=== PATIENT | male | born 1995 | race Caucasian/White ===

== ENCOUNTER 2017-11-13 15:53 | Emergency (ER) | payer SELFPAY ==
[2017-11-13 16:20] VITALS: BP 137/66
[2017-11-13] MEDS ORDERED: ONDANSETRON 4 MG TAB.RAPDIS PO ONE (16:53)
--- NOTE | 2017-11-13 16:57 | ER Document Report ---
ED GI/ - General Chief Complaint: Nausea Stated Complaint: VOMITING Time Seen by Provider: 11/13/17 16:48 Mode of Arrival: Ambulatory Information source: Patient Notes: 42-year-old male presents to ED for complaint of one episode of vomiting yesterday. States he has had some nausea today. He states he was at work when he became very nauseated and vomited yesterday states became very overheated that he had to go home. He states he is coming in today because he needs a work note in order to go back to work. He states he would also like some nausea medicine if he could please. TRAVEL OUTSIDE OF THE [place] IN LAST 30 DAYS: No - HPI Patient complains to provider of: Vomiting Onset: Yesterday Timing/Duration: Gone Quality of pain: No pain Severity at maximum: Mild Severity in ED: None Pain Level: Denies Associated symptoms: Nausea Exacerbated by: Denies Relieved by: Denies Similar symptoms previously: Yes Recently seen / treated by doctor: No - Related Data Allergies/Adverse Reactions: haloperidol [From Haldol] Allergy (Verified 11/13/17 15:56) haloperidol lactate [From Haldol] Allergy (Verified 11/13/17 15:56) Past Medical History - General Information source: Patient - Social History Smoking Status: Former Smoker Cigarette use (# per day): No Chew tobacco use (# tins/day): No Smoking Education Provided: No Frequency of alcohol use: None Drug Abuse: None Occupation: [employer] as a cook Lives with: Family Family History: Reviewed & Not Pertinent Patient has suicidal ideation: No Patient has homicidal ideation: No - Past Medical History Cardiac Medical History: Reports: None Pulmonary Medical History: Reports: None EENT Medical History: Reports: None Neurological Medical History: Reports: None Endocrine Medical History: Reports: None Renal/ Medical History: Reports: None Malignancy Medical History: Reports None GI Medical History: Reports: None Musculoskeltal Medical History: Reports None Skin Medical History: Reports None Psychiatric Medical History: Reports: Hx Anxiety, Hx Bipolar Disorder - ptsd, Hx Depression Traumatic Medical History: Reports: None Infectious Medical History: Reports: None Surgical Hx: Negative Past Surgical History: Reports: None - Immunizations Immunizations up to date: Yes Hx Diphtheria, Pertussis, Tetanus Vaccination: Yes Review of Systems - Review of Systems Constitutional: No symptoms reported EENT: No symptoms reported Cardiovascular: No symptoms reported Respiratory: No symptoms reported Gastrointestinal: Nausea, Vomiting Genitourinary: No symptoms reported Male Genitourinary: No symptoms reported Musculoskeletal: No symptoms reported Skin: No symptoms reported Hematologic/Lymphatic: No symptoms reported Neurological/Psychological: No symptoms reported -: Yes All other systems reviewed and negative Physical Exam - Vital signs Vitals: Temp Pulse Resp BP Pulse Ox 98.8 F 94 16 137/66 H 95 11/13/17 16:18 11/13/17 16:18 11/13/17 16:18 11/13/17 16:18 11/13/17 16:18 Interpretation: Normal - General General appearance: Appears well, Alert - HEENT Head: Normocephalic, Atraumatic Eyes: Normal Pupils: PERRL - Respiratory Respiratory status: No respiratory distress Chest status: Nontender Breath sounds: Normal Chest palpation: Normal - Cardiovascular Rhythm: Regular Heart sounds: Normal auscultation Murmur: No - Abdominal Inspection: Normal Distension: No distension Bowel sounds: Normal Tenderness: Nontender. No: Tender Organomegaly: No organomegaly. No: Mass - Back Back: Normal, Nontender - Extremities General upper extremity: Normal inspection, Nontender, Normal color, Normal ROM , Normal temperature General lower extremity: Normal inspection, Nontender, Normal color, Normal ROM , Normal temperature, Normal weight bearing. No: Sydnee's sign - Neurological Neuro grossly intact: Yes Cognition: Normal Orientation: AAOx4 [place] Coma Scale Eye Opening: Spontaneous Yuliana Coma Scale Verbal: Oriented Yuliana Coma Scale Motor: Obeys Commands [place] Coma Scale Total: 15 Speech: Normal Motor strength normal: LUE, RUE, LLE, RLE Sensory: Normal - Psychological Associated symptoms: Normal affect, Normal mood - Skin Skin Temperature: Warm Skin Moisture: Dry Skin Color: Normal Course - Re-evaluation Re-evalutation: 11/13/17 21:43 Patient is requesting some nausea medicine and a work note to go back to work tomorrow. He states yesterday at work he got nauseated vomiting overheated and then had some abdominal cramping. He states he does not have any vomiting or abdominal cramping today but has had a little bit of nausea. Patient is alert and oriented no signs or symptoms of any infectious disease. He denies any diarrhea. He denies any fevers. - Vital Signs Vital signs: Temp Pulse Resp BP Pulse Ox 98.8 F 94 16 137/66 H 95 11/13/17 16:18 11/13/17 16:18 11/13/17 16:18 11/13/17 16:18 11/13/17 16:18 Discharge - Discharge Clinical Impression: Viral illness Vomiting Qualifiers: Vomiting type: unspecified Vomiting Intractability: non-intractable Nausea presence: with nausea Qualified Code(s): R11.2 - Nausea with vomiting, unspecified Condition: Stable Disposition: HOME, SELF-CARE Instructions: Family Physicians / Practices Additional Instructions: VOMITING: Vomiting (or nausea without vomiting) can be caused by many other different problems. It can mean that something's wrong with the stomach, such as ulcers or inflammation or the intestinal tract, such as appendicitis. But it can also be a symptom of a problem that has nothing to do with the stomach or intestines. Vomiting is common with severe headaches, earaches, tonsillitis, and kidney infections, etc. We see it with pneumonia or heart attacks. Drugs can cause nausea and vomiting. Many abdominal problems cause vomiting; for example, gallstones, kidney stones, pancreatitis, and intestinal obstruction ( blocked bowels). In most cases, curing the vomiting depends on fixing the problem that caused it. For temporary relief, we may use an anti-nausea medicine. For home use, we can prescribe suppositories, chewable pills, pills that dissolve in the mouth, or liquid anti-nausea drugs. If the vomiting seems to be caused by a problem in the stomach, acid-suppressing drugs may be prescribed as well. It's important to avoid dehydration. Sip small amounts of clear liquids ( soft drinks, tea, broth, etc) . Try to take fluids frequently even if you are vomiting to prevent dehydration. Take increasing amounts of fluid and when liquids are being consumed successfully, advance to small amounts of bland food (toast, soups, mashed potatoes, etc.) until you are able to resume a regular diet. Avoid aspirin, tobacco, and alcohol. If the vomiting worsens, if the problem that's making you vomit worsens, or if there's evidence of bleeding in the stomach (such as black, tarry stool, or bloody or black vomit), you should return immediately. Also, return if abdominal pain worsens or becomes localized to one area or you develop high fever. Call your doctor if you aren't improved in 24 hours. VIRAL SYNDROME: The physician has diagnosed a viral infection. Viruses not only cause "colds," but can cause many different symptoms including generalized aching, fever, headache, cough, diarrhea, nausea, vomiting, and fatigue. The treatment, for the most part, is simply relief of symptoms. This means that antibiotics are usually not given. Rest, fluids, pain medications and, occasionally, medication for the specific symptoms that are most bothersome will be prescribed. Use good handwashing to avoid passing the virus to others. Shared toys should be cleaned with disinfectant. Clean the toilets, sinks, and counter surfaces in bathrooms. Launder clothing in hot water. Contact the physician if you develop any new or unusual symptoms such as severe headache, stiff neck, high fever, chest pain, productive cough, or shortness of breath. You should be rechecked if you don't see marked improvement within seven to 10 days. ANTINAUSEA MEDICATION: You have been given a medication to suppress nausea and vomiting. This type of medication can be given as a shot, pill, or suppository. It will usually last for many hours. Pills and shots usually last six to eight hours. For the typical illness, only one or two doses of the medication may be necessary. Mild lightheadedness may occur. This type of medicine can cause drowsiness. Do not drive or operate dangerous machinery while under its influence. Do not mix with alcohol. See your doctor at once if you have muscle spasms or tightness, or uncontrollable motions (particularly of the neck, mouth, or jaw). Persistent vomiting or severe lightheadedness should also be evaluated by the physician. FOLLOW-UP CARE: If you have been referred to a physician for follow-up care, call the physician s office for an appointment as you were instructed or within the next two days. If you experience worsening or a significant change in your symptoms, notify the physician immediately or return to the Emergency Department at any time for re-evaluation. Prescriptions: Ondansetron [Zofran Odt 4 mg Tablet] 1 tab PO Q6H #7 tab.rapdis Forms: Elevated Blood Pressure, Smoking Cessation Education, Return to Work
== END 2017-11-13 17:18 | disposition home or self-care (01) ==
LOC: ER 15:53
DX: R11.2 Nausea with vomiting, unspecified (principal); B34.9 Viral infection, unspecified
CPT/HCPCS: 99283; S0119

== ENCOUNTER 2018-02-17 17:33 | Emergency (ER) | payer SELFPAY ==
[2018-02-17] MEDS ORDERED: NORMAL SALINE 1000 ML 1,000 ML IV ONE (17:43)
[2018-02-17 18:02] LABS: ABSOLUTE BASOPHILS # (AUTO) 0.1 10^3/uL (0.0-0.2); ABSOLUTE EOSINOPHILS # (AUTO) 0.2 10^3/uL (0.0-0.6); ABSOLUTE LYMPHOCYTES (AUTO) 2.1 10^3/uL (0.5-4.7); ABSOLUTE MONOCYTES (AUTO) 1.4 10^3/uL (0.1-1.4); BASOPHILS % (AUTO) 0.4 % (0-2); EOSINOPHILS % (AUTO) 1.1 % (0-6); HEMOGLOBIN 14.1 g/dL (13.5-17.0); LYMPHOCYTES % (AUTO) 11.1 % (13-45); MEAN CORPUSCULAR HEMOGLOBIN 29.7 pg (27.0-33.4); MEAN CORPUSCULAR HGB CONC 33.5 g/dL (32.0-36.0); MEAN CORPUSCULAR VOLUME 89 fl (80-97); MONOCYTES % (AUTO) 7.6 % (3-13); PLATELET COUNT 374 10^3/uL (150-450); RED BLOOD COUNT 4.74 10^6/uL (4.35-5.55); RED CELL DISTRIBUTION WIDTH 12.9 % (11.5-14.0); SEGMENTED NEUTROPHILS % (AUTO) 79.8 % (42-78); TOTAL CELLS COUNTED % (AUTO) 100 %; WHITE BLOOD COUNT 18.8 10^3/uL (4.0-10.5)
[2018-02-17 18:22] LABS: ANION GAP 10 (5-19); BLOOD UREA NITROGEN 15 mg/dL (7-20); CALCIUM 9.8 mg/dL (8.4-10.2); CARBON DIOXIDE 23 mmol/L (22-30); CHLORIDE 107 mmol/L (98-107); GLUCOSE 92 mg/dL (75-110); POTASSIUM 4.3 mmol/L (3.6-5.0); SODIUM 140.2 mmol/L (137-145)
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
[2018-02-17] MEDS ORDERED: KETOROLAC TROMETHAMINE INJ/PF 30 MG/1 ML SDV IV ONE (19:01)
[2018-02-17] MEDS ORDERED: HYDROXYZINE PAMOATE 25 MG CAPSULE PO ONE (19:02)
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
[2018-02-17 22:03] VITALS: BP 121/70
--- NOTE | 2018-02-17 23:10 | EKG REPORT ---
SEVERITY:- ABNORMAL ECG - SINUS RHYTHM LEFT ATRIAL ABNORMALITY BORDERLINE LEFT AXIS DEVIATION BORDERLINE T ABNORMALITIES, ANT-LAT LEADS : Confirmed by: Neftali Bryan 17-Feb-2018 23:09:45
== END 2018-02-17 22:03 | disposition home or self-care (01) ==
LOC: ER 17:33
DX: R07.9 Chest pain, unspecified (principal); R07.89 Other chest pain; F17.200 Nicotine dependence, unspecified, uncomplicated; V87.7XXA Person injured in collision between other specified motor vehicles (traffic), initial encounter; M25.512 Pain in left shoulder
CPT/HCPCS: 93005; 99291; 96361; 96374; 36415; 85025; 80048; 84484; 73030; 70450; 71260; 72125; 74177; 93010; J1885; J7030

== ENCOUNTER 2019-01-20 19:11 | Emergency (ER) | payer SELFPAY ==
[2019-01-20] MEDS ORDERED: DIPH/PERTUSS(ACELL)/TETANUS VAC/PF 0.5 ML SYR (>=10YO) IM ONE (20:15)
[2019-01-20 20:58] LABS: ABSOLUTE LYMPHOCYTES (AUTO) 1.4 10^3/uL (0.5-4.7); ABSOLUTE MONOCYTES (AUTO) 0.7 10^3/uL (0.1-1.4); ABSOLUTE NEUT (AUTO) 17.4 10^3/uL (1.7-8.2); BASOPHILS % (AUTO) 0.2 % (0-2); EOSINOPHILS % (AUTO) 0.1 % (0-6); HEMATOCRIT 47.4 % (37.9-51.0); HEMOGLOBIN 16.1 g/dL (13.5-17.0); LYMPHOCYTES % (AUTO) 7.1 % (13-45); MEAN CORPUSCULAR HGB CONC 33.9 g/dL (32.0-36.0); MEAN CORPUSCULAR VOLUME 86 fl (80-97); MONOCYTES % (AUTO) 3.6 % (3-13); PLATELET COUNT 490 10^3/uL (150-450); RED BLOOD COUNT 5.54 10^6/uL (4.35-5.55); RED CELL DISTRIBUTION WIDTH 13.3 % (11.5-14.0); TOTAL CELLS COUNTED % (AUTO) 100 %; WHITE BLOOD COUNT 19.6 10^3/uL (4.0-10.5)
[2019-01-20] MEDS ORDERED: ONDANSETRON HCL INJ/PF 4 MG/2 ML SDV IV ONE (21:01)
[2019-01-20 21:08] LABS: ALKALINE PHOSPHATASE 152 U/L (38-126); ANION GAP 13 (5-19); ASPARTATE AMINO TRANSFERASE 22 U/L (17-59); BILIRUBIN,DIRECT 0.2 mg/dL (0.0-0.4); BILIRUBIN,TOTAL 0.5 mg/dL (0.2-1.3); BLOOD UREA NITROGEN 12 mg/dL (7-20); CALCIUM 10.9 mg/dL (8.4-10.2); CARBON DIOXIDE 31 mmol/L (22-30); CHLORIDE 95 mmol/L (98-107); GLUCOSE 112 mg/dL (75-110); POTASSIUM 4.6 mmol/L (3.6-5.0); TOTAL PROTEIN 8.4 g/dL (6.3-8.2)
--- NOTE | 2019-01-20 21:10 | RADIOLOGY REPORT (SQ) ---
CT MAXILLOFACIAL WITHOUT IV CONTRAST EXAM DATE: 01/20/2019 8:14 PM CDT HISTORY: Facial pain. COMPARISON: None. TECHNIQUE: CT scan of the facial bones was performed without IV contrast. This exam was performed according to our departmental dose-optimization program, which includes automated exposure control, adjustment of the mA and/or kV according to patient size and/or use of iterative reconstruction technique. FINDINGS: No acute facial bone fracture is seen. Mucosal disease of the bilateral ethmoid and maxillary sinuses with a retention cyst in the left maxillary sinus. No retrobulbar mass or hematoma is identified. IMPRESSION: No acute facial bone fracture.
--- NOTE | 2019-01-20 21:11 | RADIOLOGY REPORT (SQ) ---
CT CERVICAL SPINE WITHOUT IV CONTRAST EXAM DATE: 01/20/2019 8:14 PM CDT HISTORY: Neck pain. COMPARISON: None. TECHNIQUE: CT scan of the cervical spine without IV contrast. This exam was performed according to our departmental dose-optimization program, which includes automated exposure control, adjustment of the mA and/or kV according to patient size and/or use of iterative reconstruction technique. FINDINGS: No acute cervical fracture or prevertebral soft tissue swelling is seen. There is a tiny ossific fragment along the anterior superior C5 vertebral body, likely representing ligamentous ossification. There is straightening of the normal cervical lordosis, which may be due to cervical collar, muscle spasm, or patient positioning. The facet joints and disc spaces are preserved. No advanced canal stenosis is identified. IMPRESSION: No acute fracture or subluxation of the cervical spine.
--- NOTE | 2019-01-20 21:11 | RADIOLOGY REPORT (SQ) ---
EXAM DESCRIPTION: CT HEAD WITHOUT IV CONTRAST COMPLETED DATE/TME: 01/20/2019 20:14 CLINICAL HISTORY: 23 years, Male, trauma COMPARISON: CT head 02/17/2018 TECHNIQUE: Axial images of the head were performed without the use of intravenous contrast, with sagittal and coronal reformatted images. Images stored on PACS. All CT scanners at this facility use dose modulation, iterative reconstruction, and/or weight based dosing when appropriate to reduce radiation dose to as low as reasonably achievable (ALARA). [facility]: Dose Right [facility]: CareDose [facility]: Dose Right [facility]: Teradose 4D [facility]: [employer] LIMITATIONS: None. FINDINGS: No skull fracture. No intracranial bleed. No evidence of acute infarct. No evidence of mass or hydrocephalus. There is no significant change, as compared with the prior CT scan. IMPRESSION: No skull fracture. No intracranial bleed. TECHNICAL DOCUMENTATION: Quality ID # 436: Final reports with documentation of one or more dose reduction techniques (e.g., Automated exposure control, adjustment of the mA and/or kV according to patient size, use of iterative reconstruction technique) copyright 2011 [employer]- All Rights Reserved
[2019-01-20] MEDS ORDERED: NORMAL SALINE 1000 ML 1,000 ML IV ONE ×2 (21:18→22:55)
[2019-01-20] MEDS ORDERED: ACETAMINOPHEN 325 MG TABLET PO ONE (22:04)
[2019-01-20] MEDS ORDERED: LIDOCAINE 0.5%/EPINEPHRINE INJ 50 ML VIAL INJ ONE (22:06)
[2019-01-20 22:23] LABS: AMORPHOUS SEDIMENT,URINE TRACE /HPF; APPEARANCE,URINE CLOUDY; BILIRUBIN,URINE NEGATIVE (NEGATIVE); COLOR,URINE AMBER; GLUCOSE, URINE NEGATIVE (NEGATIVE); KETONES,URINE TRACE mg/dL (NEGATIVE); LEUKOCYTE ESTERASE,URINE NEGATIVE (NEGATIVE); NITRITE,URINE NEGATIVE (NEGATIVE); PROTEIN,URINE 100 mg/dL (NEGATIVE); URINE SPECIFIC GRAVITY 1.032
--- NOTE | 2019-01-20 23:15 | RADIOLOGY REPORT (SQ) ---
US SCROTUM EXAM DATE: 01/20/2019 10:04 PM CDT HISTORY: Scrotal pain. COMPARISON: None. TECHNIQUE: Lua-scale, color Doppler, and spectral Doppler ultrasound images of the scrotum were obtained. FINDINGS: RIGHT: Normal size and echogenicity of the testis, measuring 4.1 x 2.5 x 2.0 cm. Positive color Doppler flow is present. No focal intratesticular mass is seen. The epididymis also has normal size and echogenicity. LEFT: Normal size and echogenicity of the testis, measuring 3.7 x 2.7 x 1.7 cm. Positive color Doppler flow is present. No focal intratesticular mass is seen. The epididymis also has normal size and echogenicity. OTHER: Small bilateral hydroceles. No varicoceles. No scrotal hernias. Skin thickening of the scrotum. IMPRESSION: No evidence of testicular torsion or inflammation. Small bilateral hydroceles, nonspecific.
[2019-01-20] MEDS ORDERED: AZITHROMYCIN 250 MG TABLET PO ONE (23:21)
[2019-01-20] MEDS ORDERED: CEFTRIAXONE INJ 250 MG VIAL IM ONE (23:21)
[2019-01-20] MEDS ORDERED: LIDOCAINE 1% INJ-PF (10 MG/ML) 30 ML SDV ONE (23:34)
[2019-01-20] MEDS ORDERED: LIDOCAINE 1% INJ (10 MG/ML) 10 ML MDV INJ ONE (23:41)
[2019-01-21] MEDS ORDERED: METOCLOPRAMIDE HCL INJ/PF 10 MG/2 ML SDV IV ONE (00:13)
--- NOTE | 2019-01-21 00:41 | ER Document Report ---
ED General - General Chief Complaint: Laceration Stated Complaint: POSS OVERDOSE/NAUSEA/DEHYDRATION Time Seen by Provider: 01/20/19 20:13 Notes: RN NOTE: Pt is a 23 yom who presents to the ER with a CC of laceration to his left eyebrow. Pt reports he is currently withdrawing from heroin at this time and c/o body aches. Pt reports he has not used heroin since 14:00 yesterday; however, reports using suboxone at 15:00 today. Pt is not prescribed suboxone. Pt reports he was taking a shower today and became dizzy and woke up on the floor in the bathroom just [employer]. Pt denies any any further drugs/ETOH in system at this time. Pt presents with a deep laceration to his left eyebrow. No active bleeding noted at this time. Pt reports he has a room at [facility] for detox. EMS informs this RN that the pt requires medical clearance prior to detox. EMS states that the pt has a room at [facility] until 20:00 tonight, and that if the pt is discharged prior to 20:00 then pt can maintain this bed and [facility] will transport pt to [facility]. Pt is alert and oriented x4 at this time. V/S stable upon arrival. MY HPI: Upon my examination of the patient he is complaining of generalized nausea. Patient also complaining of generalized bilateral testicular pain. Patient voices an intermittent burning sensation upon urinating. Patient is also complaining of generalized body aches. Patient is wishing for medication for generalized body aches but is adamant about not getting narcotics. Discussed use of Tylenol and patient is in agreement with this plan. Patient states he has detoxed by himself multiple times. States he typically has body aches and nausea when he tries to detox. States today he just woke up after passing out in the shower which is what prompted the visit to the emergency room. TRAVEL OUTSIDE OF THE [place] IN LAST 30 DAYS: No - Related Data Allergies/Adverse Reactions: haloperidol [From Haldol] Allergy (Verified 01/20/19 19:17) haloperidol lactate [From Haldol] Allergy (Verified 01/20/19 19:17) Past Medical History - General Information source: Patient, Parent - Social History Smoking Status: Current Every Day Smoker Chew tobacco use (# tins/day): No Frequency of alcohol use: Occasional Drug Abuse: Heroin, Prescription drugs, Other Family History: Reviewed & Not Pertinent Patient has suicidal ideation: No Patient has homicidal ideation: No Renal/ Medical History: Denies: Hx Peritoneal Dialysis Psychiatric Medical History: Reports: Hx Anxiety, Hx Bipolar Disorder - ptsd, Hx Depression - Immunizations Immunizations up to date: Yes Hx Diphtheria, Pertussis, Tetanus Vaccination: Yes Review of Systems - Review of Systems Constitutional: See HPI EENT: denies: Blurred vision, Double vision, Ear discharge, Nose discharge Cardiovascular: See HPI Respiratory: See HPI Gastrointestinal: See HPI Genitourinary: See HPI Male Genitourinary: See HPI Musculoskeletal: See HPI Skin: No symptoms reported Hematologic/Lymphatic: No symptoms reported Neurological/Psychological: See HPI Physical Exam - Vital signs Vitals: Temp Pulse Resp BP Pulse Ox 98.1 F 78 18 125/70 99 01/20/19 19:21 01/20/19 19:21 01/20/19 19:21 01/20/19 19:21 01/20/19 19:21 - Notes Notes: GENERAL: Alert, interacts well. Slightly anxious. HEAD: Normocephalic EYES: Pupils equal, round, and reactive to light. Extraocular movements intact. ENT: Oral mucosa moist, tongue midline. NECK: Full range of motion. Supple. Trachea midline. LUNGS: Clear to auscultation bilaterally, no wheezes, rales, or rhonchi. No respiratory distress. HEART: Regular rate and rhythm. No murmur ABDOMEN: Soft, non-tender. Non-distended. Bowel sounds present in all 4 quadrants. EXTREMITIES: Moves all 4 extremities spontaneously. No edema, normal radial and dorsalis pedis pulses bilaterally. No cyanosis. BACK: no cervical, thoracic, lumbar midline tenderness. No saddle anesthesia, normal distal neurovascular exam. NEUROLOGICAL: Alert and oriented x3. Normal speech. cranial nerves II through XII grossly intact PSYCH: Normal affect, anxious mood. SKIN: Warm, dry, normal turgor. Laceration noted over the left eyebrow. Pain upon palpation left eyebrow and left zygomatic arch. Course - Re-evaluation Re-evalutation: 01/21/19 00:40 Laboratory 01/20/19 01/20/19 01/20/19 20:38 20:38 22:03 WBC 19.6 H RBC 5.54 Hgb 16.1 Hct 47.4 MCV 86 MCH 29.0 MCHC 33.9 RDW 13.3 Plt Count 490 H Seg Neutrophils % 89.0 H Lymphocytes % 7.1 L Monocytes % 3.6 Eosinophils % 0.1 Basophils % 0.2 Absolute Neutrophils 17.4 H Absolute Lymphocytes 1.4 Absolute Monocytes 0.7 Absolute Eosinophils 0.0 Absolute Basophils 0.0 Sodium 138.5 Potassium 4.6 Chloride 95 L Carbon Dioxide 31 H Anion Gap 13 BUN 12 Creatinine 1.37 H Est GFR ( Amer) > 60 Est GFR (Non-Af Amer) > 60 Glucose 112 H Calcium 10.9 H Total Bilirubin 0.5 Direct Bilirubin 0.2 Neonat Total Bilirubin Not Reportable Neonat Direct Bilirubin Not Reportable Neonat Indirect Bili Not Reportable AST 22 ALT 19 Alkaline Phosphatase 152 H Total Protein 8.4 H Albumin 5.0 Urine Color VINITA Urine Appearance CLOUDY Urine pH 5.0 Ur Specific [place] 1.032 Urine Protein 100 H Urine Glucose (UA) NEGATIVE Urine Ketones TRACE H Urine Blood NEGATIVE Urine Nitrite NEGATIVE Urine Bilirubin NEGATIVE Urine Urobilinogen 2.0 H Ur Leukocyte Esterase NEGATIVE Urine WBC (Auto) 7 Urine RBC (Auto) 1 Squamous Epi Cells Auto 1 Amorphous Sediment Auto TRACE Urine Mucus (Auto) MANY Urine Ascorbic Acid [address] 01/20/19 20:14 IMPRESSION: No acute fracture or subluxation of the cervical spine. Facial Bones CT 01/20/19 20:14 IMPRESSION: No acute facial bone fracture. Head CT 01/20/19 20:14 IMPRESSION: No skull fracture. No intracranial bleed. TECHNICAL DOCUMENTATION: Quality ID # 436: Final reports with documentation of one or more dose reduction techniques (e.g., Automated exposure control, adjustment of the mA and/or kV according to patient size, use of iterative reconstruction technique) copyright 2011 [employer]- All Rights Reserved Scrotum Ultrasound 01/20/19 22:04 IMPRESSION: No evidence of testicular torsion or inflammation. Small bilateral hydroceles, nonspecific. Patient has been prophylactically treated for gonorrhea and chlamydia for his dysuria. Patient's labs show a leukocytosis of 11.6. Patient's creatinine was noted to be 1.237 no signs of urinary tract infection but it elevated specific gravity of 1.032. Patient was treated with 2 L of normal saline solution in the emergency department. Patient was initially given Zofran for his generalized nausea. States that that did help for an extended period time. Patient states he then got nauseated again and vomited x1. Patient was then given Reglan. Patient states he typically gets nauseated and has general body aches when he attempts to detox. States this is normal for him. Patient's laceration over left eyebrow was repaired, see procedure note. No complications. I have discussed this case with my attending Dr. Rader who stated the Pts leukocytosis is likely due to the nausea, vomiting and patient withdrawing. Patient had no tremors or seizure activity. His creatinine and specific gravity have been treated with normal saline solution in the emergency department. Dr. Rader is comfortable with pt. d/c at this time. At this time will discharge with return precautions and follow-up recommenda tions. Verbal discharge instructions given a the bedside and opportunity for questions given. Medication warnings reviewed. Patient is in agreement with this plan and has verbalized understanding of return precautions and the need for primary care follow-up in the next 24-72 hours. This medical record was dictated with voice recognizing software. There may be grammatical, syntax errors that are unintended. 01/21/19 00:45 Patient states his tetanus is up-to-date. EKG shows a sinus rhythm rate of 70, QTc 441. - Vital Signs Vital signs: Temp Pulse Resp BP Pulse Ox 98.1 F 78 11 L 125/70 96 01/20/19 19:21 01/20/19 19:21 01/20/19 23:00 01/20/19 19:21 01/20/19 23:00 - Laboratory Result Diagrams: 01/20/19 20:38 01/20/19 20:38 Laboratory results interpreted by me: 01/20/19 01/20/19 01/20/19 20:38 20:38 22:03 WBC 19.6 H Plt Count 490 H Seg Neutrophils % 89.0 H Lymphocytes % 7.1 L Absolute Neutrophils 17.4 H Chloride 95 L Carbon Dioxide 31 H Creatinine 1.37 H Glucose 112 H Calcium 10.9 H Alkaline Phosphatase 152 H Total Protein 8.4 H Urine Protein 100 H Urine Ketones TRACE H Urine Urobilinogen 2.0 H Urine Ascorbic Acid 40 H Discharge - Discharge Clinical Impression: Laceration, Withdrawal complaint Syncope Qualifiers: Syncope type: unspecified Qualified Code(s): R55 - Syncope and collapse Nausea & vomiting Qualifiers: Vomiting type: unspecified Vomiting Intractability: unspecified Qualified Code(s): R11.2 - Nausea with vomiting, unspecified Condition: Stable Disposition: HOME, SELF-CARE Instructions: Intravenous (IV) Fluids ([facility]), Vomiting ([facility]), Laceration Care ([facility]), Antinausea Medication ([facility]) Additional Instructions: As we discussed you have been seen and treated in the emergency department for passing out, withdrawal symptoms, nausea. Please make sure you are taking prescription nausea medication as prescribed. Please also make sure you are staying well-hydrated. Please return to the [facility] room should you have any other concerns. Prescriptions: Ondansetron [Zofran Odt 4 mg Tablet] 1 - 2 tab PO Q6 PRN #15 tab.rapdis PRN Reason: For Nausea/Vomiting
[2019-01-21 01:58] LABS: CHLAM PCR NOT DETECTED (NOT DETECT)
[2019-01-21 02:00] VITALS: BP 114/52
--- NOTE | 2019-01-21 14:54 | EKG REPORT ---
SEVERITY:- ABNORMAL ECG - SINUS RHYTHM LAD, CONSIDER LEFT ANTERIOR FASCICULAR BLOCK : Confirmed by: Neftali Bryan 21-Jan-2019 14:54:22
== END 2019-01-21 02:01 | disposition home or self-care (01) ==
LOC: ER 19:11
DX: S01.112A Laceration without foreign body of left eyelid and periocular area, initial encounter (principal); W19.XXXA Unspecified fall, initial encounter; Y93.E1 Activity, personal bathing and showering; F11.10 Opioid abuse, uncomplicated; R11.2 Nausea with vomiting, unspecified; R55 Syncope and collapse; N43.3 Hydrocele, unspecified; N50.811 Right testicular pain; N50.812 Left testicular pain; R30.0 Dysuria; D72.829 Elevated white blood cell count, unspecified; Z88.8 Allergy status to other drugs, medicaments and biological substances; F17.200 Nicotine dependence, unspecified, uncomplicated
CPT/HCPCS: 93005; 99284; 96361; 96374; 96375; 36415; 87086; 85025; 80053; 81001; 87491; 87591; 76870; 93976; 70450; 70486; 72125; 93010; 12011; J3490; J2765; J2405; J7030; J0696